=== PATIENT | female | born 1970 | race African-American/Black ===

== ENCOUNTER → 2017-05-07 | Outpatient (CLI) | payer BC ==
[~2017-05-07] MED LIST: COLACE100 MG PO; COLAZAL750 MG; MIRALAX255 GM PO; MOTION RELIEF25 MG PO; NORCO 5-325 TA1 EACH PO; VALIUM2 MG PO
== END ==
LOC: RAD 01:25
DX: Z12.31 Encounter for screening mammogram for malignant neoplasm of breast (principal)

== ENCOUNTER → 2018-05-07 | Outpatient (CLI) | payer BC | LOC: RAD 01:31 | DX: Z12.31 Encounter for screening mammogram for malignant neoplasm of breast (principal) ==

== ENCOUNTER → 2019-05-12 | Outpatient (CLI) | payer BC | LOC: RAD 12:11 | DX: Z12.31 Encounter for screening mammogram for malignant neoplasm of breast (principal) ==

== ENCOUNTER 2019-06-15 06:00 | Day surgery (SDC) | payer BC ==
[~2019-06-15] VITALS: Ht 170.2 cm; Wt 77.1 kg
--- NOTE | ~2019-06-15 | EKG ---
[facility] [place] [address] ELECTROCARDIOGRAM REPORT Name: ELIZABETHBINU Room #: 150-[address] [place] [address] M.R.#: [id number] Admission: 06/15/19 Attend Phys: Azael Nicole, Discharge: Date of : 70 Report #: [id number] THIS REPORT FOR: cc: Kole Dukes K. Steven DO Epiphany, Epiphany MD ~ THIS REPORT FOR: //name// [facility] Test Date: 2019-06-15 Test Time: 06:34:34 Pat Name: BINU JOHNSON Department: Room: 150 2 Gender: F Hospital Admissions Clerk: dixie : 1970 Requested By: Azael Nicole Order Number: [id number] MD: Measurements Intervals [place] Rate: 76 P: 61 TN: 172 QRS: -11 QRSD: 88 T: 23 QT: 404 QTc: 455 Interpretive Statements Sinus rhythm ST elev, probable normal early repol pattern Baseline wander in lead(s) V3 No previous ECG available for comparison [email or web address] By: 0634 0634 Epiphany Epiphany, /EPI
[~2019-06-15 06:00] MED LIST changes: +ROSUVASTATIN CA20 MG PO; +STELARA90 MG/1 ML SUBQ
[2019-06-15 06:39] LABS: HEMATOCRIT 35.7 % (37.0-47.0); HEMOGLOBIN 11.6 gm/dL (12.0-15.0)
[2019-06-15 06:52] VITALS: BP 111/70
--- NOTE | 2019-06-15 07:24 | H ---
[facility] [place] [address] HISTORY AND PHYSICAL Name: BINU JOHNSON Room #: 150-2 [facility]..#: [id number] Admission: 06/15/19 Attend Phys: Azael Nicole, Discharge: Date of : 70 Report #: [id number] THIS REPORT FOR: //name// CC: Kole Nicole DATE OF SERVICE: 06/13/2019 DATE OF SURGERY: 06/15/2019. REASON FOR SURGERY: Recurrent abnormal Pap smears with cervical dysplasia. HISTORY OF PRESENT ILLNESS: This is a 49-year-old who presents with recurrent abnormal Pap smears with cervical dysplasia. Her last annual exam was on 05/12/2019 and her Pap smear showed atypical cells. She did undergo colposcopy and biopsy 05/24/2019 was consistent with cervical dysplasia. She has had a history of abnormal Pap smears and cervical dysplasia. She had a laser procedure of the cervix in 06/2006. She has had 2 vaginal deliveries. Otherwise, she has done well after discussing all options due to her recurrent abnormal Pap smears and cervical dysplasia. She has elected to proceed with further evaluation with a colposcopy and LEEP procedure. Procedure, risks, recovery, and alternative options have been discussed with the patient. PAST MEDICAL HISTORY: She has had 2 vaginal deliveries. She had a laser procedure of the cervix. PAST SURGICAL HISTORY: She has had an appendectomy. SOCIAL HISTORY: She does smoke. She is employed and . FAMILY HISTORY: Positive for heart disease, hypertension, and thyroid disease. ALLERGIES: SULFA. MEDICATIONS: Her active medications are Colazal. REVIEW OF SYSTEMS: She denies any fever or chills. No nausea, vomiting, no diarrhea, dysuria, chest pain or shortness of breath. PHYSICAL EXAMINATION: VITAL SIGNS: Her height is 5 feet 7 inches, weight 171 and a BMI of 26, blood pressure 120/80. LUNGS: Clear. HEART: She had a regular rate and rhythm. NECK: Revealed no thyroid nodules, no supraclavicular adenopathy. Her breasts were normal bilaterally. No masses or adenopathy. [address] [address] HISTORY AND PHYSICAL Name: BINU JOHNSON Becca Room #: 150-2 [facility]#: [id number] Admission: 06/15/19 Attend Phys: Azael Nicole, Discharge: Date of : 70 Report #: [id number] ABDOMEN: Soft, nontender. PELVIC: There is no apparent vulvar or vaginal lesions. Bimanual is without masses or pain. IMPRESSION: Recurrent abnormal Pap smears with cervical dysplasia. At this time, the patient is to undergo further evaluation and treatment with a colposcopy and LEEP procedure. The procedure, risks, recovery have been discussed with the patient. <ELECTRONICALLY SIGNED> By: Azael Nicole MD 06/15/19 0724 [id number] [id number] Azael Nicole MD /christina
[2019-06-15 08:39] VITALS: BP 111/70
--- NOTE | 2019-06-15 08:57 | O ---
[facility] [place] [address] OPERATIVE REPORT Name: BINU JOHNSON Room #: 150-2 [facility].#: [id number] Admission: 06/15/19 Attend Phys: Azael Nicole, Discharge: Date of : 70 Report #: [id number] THIS REPORT FOR: cc: Kole Dukes K. Steven DO Barnthouse,Azael Guerrero MD ~ THIS REPORT FOR: //name// CC: Kole Nicole DATE OF SERVICE: 06/15/2019 PREOPERATIVE DIAGNOSES: Recurrent abnormal Pap smears with recurrent cervical dysplasia. POSTOPERATIVE DIAGNOSES: Recurrent abnormal Pap smears with recurrent cervical dysplasia as final pathology being deferred. PROCEDURE: Colposcopy with LEEP procedure including endocervical curettage. SURGEON: Azael Nicole MD. ANESTHESIA: General. Also, local infiltration of the cervix with 4 mL of 1% Xylocaine with epinephrine. ESTIMATED BLOOD LOSS: Approximately 5 mL. COMPLICATIONS: None. DESCRIPTION OF OPERATION: The patient was taken to the operating room, given adequate anesthesia. She was placed in the stirrups. She was prepped, compression stockings were applied. She was then draped. A timeout was performed. A weighted speculum placed in the posterior vagina. The anterior lip of the cervix was visualized using a Sophie retractor, the anterior cervix was grasped with an Allis clamp. Using ___ solution, a colposcopy was performed. She had an acetowhite lesion primarily posteriorly, a small area anteriorly. At this point, the cervix was injected circumferentially with 4 mL of 1% Xylocaine with epinephrine. Using a loop the entire lesion was removed. An ECC was performed. Then, using a ball tip cautery, further cauterization was performed circumferentially outside of the LEEP zone, cauterizing all abnormal tissue visualized under the colposcope creating a smooth cone bed of 7 mm. There was excellent hemostasis, but Monsel's was applied for added postoperative hemostasis. There were no complications. The patient tolerated the procedure well. The sponge, needle and instrument counts were correct. The Allis clamp was removed from the cervix. It was hemostatic. The weighted speculum removed. [address] [address] OPERATIVE REPORT Name: DANIEL JOHNSONRA Hudson Room #: 150-2 [facility].#: [id number] Admission: 06/15/19 Attend Phys: Azael Nicole, Discharge: Date of : 70 Report #: [id number] There were no complications. She was placed back in the supine position and taken to the recovery room in stable condition. <ELECTRONICALLY SIGNED> By: Azael Nicole MD 06/15/19 0857 0817 0849 Azael Nicole MD /nt
--- NOTE | 2019-06-16 15:07 | PATH ---
[facility] [place] [address] PATHOLOGY RPT PROCEDURE Name: BINU JOHNSON Room #: [facility]P [facility] MAdonisR.#: [id number] Admission: 06/15/19 Date of : 70 Discharge: 06/15/19 Report #: [id number] Path Case #: [id number] [facility] Accession Number: [id number] . 01 Material submitted: . PART A: endocervix - ENDOCERVICAL CURETTINGS PART B: cervix - CERVIX . 01 Clinical history: . Mild cervical dysplasia, atypical squamous cells of undetermined significance of cytologic smear of cervix . 02 Diagnosis: A. Endocervix, curettage: - Scant endocervical mucosa with mild chronic inflammation. - Fragments of ectocervical mucosa with reactive changes. . B. Cervix, biopsy: - Ectocervical mucosa with reactive changes. - No endocervical mucosa present. (NETO:[place]; 06/16/2019) QMS 06/16/2019 1343 Local . 02 Electronically signed: . Sandeep Garcia MD, Pathologist NPI- [id number] . 01 Gross description: . A. The specimen is received in formalin, labeled "Binu Johnson, endocervical curettings" and consists of hemorrhagic mucoid material admixed with soft pink-donahue tissue measuring 2.0 x 0.8 x 0.2 cm which is entirely submitted in A1. . B. The specimen is received in formalin, labeled "Speedy, Binu, cervix" and consists of 3 unoriented segments of donahue tissue measuring between 0.5 x 0.2 x 0.1 cm and 0.6 x 0.3 x 0.2 cm which are entirely submitted in B1. (SD; 06/15/2019) SYU/SYU 06/15/2019 1637 Local . 02 Pathologist provided ICD-10: N72, N88.8 . 02 CPT . 301292, 209317 Specimen Comment: A courtesy copy of this report has been sent to [phone], [phone] [address] PATHOLOGY RPT PROCEDURE Name: BINU JOHNSON Room #: DEP [facility] Celia#: [id number] Admission: 06/15/19 Date of : 70 Discharge: 06/15/19 Report #: [id number] Path Case #: [id number] Specimen Comment: [id number] Specimen Comment: Report sent to / DR HALL Performed at: [address], [place] [id number] MD Hugh García MD Phone: [phone] Performed at: [address] [id number] MD Shea Muniz MD Phone: [phone]
== END 2019-06-15 09:45 | disposition home or self-care (01) ==
LOC: OR 06:00 → TBA 06:00 → OR 07:01
PROVIDERS: Obstetrics & Gynecology
DX: N72 Inflammatory disease of cervix uteri (principal); N88.8 Other specified noninflammatory disorders of cervix uteri; N87.9 Dysplasia of cervix uteri, unspecified; K50.90 Crohn's disease, unspecified, without complications; F17.210 Nicotine dependence, cigarettes, uncomplicated; Z90.49 Acquired absence of other specified parts of digestive tract; Z82.49 Family history of ischemic heart disease and other diseases of the circulatory system; Z88.2 Allergy status to sulfonamides; Z98.890 Other specified postprocedural states; Z79.899 Other long term (current) drug therapy
CPT/HCPCS: 50010; 50101; 51732; 62110; 62900; 70005

== ENCOUNTER → 2020-08-15 | Outpatient (CLI) | payer BC | LOC: BC 11:19 | PROVIDERS: ATTEND Obstetrics & Gynecology | DX: Z12.31 Encounter for screening mammogram for malignant neoplasm of breast (principal) ==